=== PATIENT | male | born 1960 | race Caucasian/White ===

== ENCOUNTER 2016-04-07 21:57 | Emergency (ER) | payer OTHER ==
[~2016-04-07] VITALS: Ht 177.8 cm; Wt 100.0 kg
[2016-04-07 22:24] VITALS: Ht 177.8 cm; Wt 100.0 kg
[2016-04-07] MEDS ORDERED: SOD CHLORIDE 0.9% 1,000 ML IV STA (23:05)
[2016-04-07] MEDS ORDERED: LORAZEPAM 2 MG INJ IV ONE (23:30)
[2016-04-07 23:59] LABS: HEMATOCRIT 43.3 % (42.0-52.0); MEAN CORPUSCULAR HEMOGLOBIN 32.8 pg (29.0-33.0); MEAN CORPUSCULAR HGB CONC 34.5 g/dl (32.0-37.0); MEAN CORPUSCULAR VOLUME 94.8 fl (82.0-101.0); MEAN PLATELET VOLUME 10.2 fl (7.4-10.4); PLATELET COUNT 68 10^3/UL (140-440); RED BLOOD COUNT 4.57 10^6/ul (4.70-6.10); RED CELL DISTRIBUTION WIDTH 15.4 % (11.5-14.5); UNCORRECTED WBC 10.5 10^3/ul (4.8-10.8); WHITE BLOOD COUNT 10.5 10^3/ul (4.8-10.8)
[2016-04-08] MEDS ORDERED: MULTIVITAMINS 10 ML, THIAMINE 100 MG, FOLIC ACID 1 MG, MAGNESIUM SULFATE 2 GM in SOD CH... IV ONE ×5
[2016-04-08 00:04] LABS: ALBUMIN 3.8 g/dl (3.3-4.9)
[2016-04-08 00:05] LABS: POTASSIUM 3.4 mmol/L (3.5-5.1)
[2016-04-08 00:06] LABS: CONDITION 1; LH ANALYZER COMMENTS 1
[2016-04-08 00:07] LABS: ALBUMIN/GLOBULIN RATIO 1.02; BILIRUBIN,DIRECT 0.3 mg/dl (0.00-0.20); BILIRUBIN,INDIRECT 0.6 mg/dl (0-1.1); BILIRUBIN,TOTAL 0.9 mg/dl (0.2-1.3); CREATININE 0.82 mg/dl (0.61-1.24); TOTAL PROTEIN 7.5 g/dl (6.1-8.1)
[2016-04-08 00:08] LABS: CALCIUM 8.1 mg/dl (8.4-10.2)
[2016-04-08 00:56] LABS: ANISOCYTOSIS 1+; LYMPHOCYTES # 0.7 10^3/ul (0.8-2.9); MONOCYTE # 0.2 10^3/ul (0.3-0.9); NEUTROPHIL # 9.6 10^3/ul (1.6-7.5); PLATELET ESTIMATE PLT APPEAR DECREASED
[2016-04-08 01:16] LABS: BARBITURATES Negative (NEGATIVE); BENZODIAZEPINES Negative (NEGATIVE); CANNABINOIDS Positive (NEGATIVE); COCAINE Negative (NEGATIVE); OPIATES Negative (NEGATIVE)
[2016-04-08] MEDS ORDERED: LORAZEPAM 2 MG INJ IV ONE ×2 (03:00→05:00)
--- NOTE | 2016-04-08 03:26 | ERA ---
ER Documentation Chief Complaint Date/Time DATE: 04/08/16 TIME: 03:25 Chief Complaint pt is an alcoholic with his last drink at 1000 this morning. HPI This is a 55-year-old male who is an alcoholic. He said his last drink was at 10 AM, approximately 14 hours prior to arrival. Patient is coming in for tremulousness and feeling very weak and nauseous. Patient is a decades long history of chronic alcoholism with heavy drinking. ROS All systems reviewed and are negative except as per history of present illness. PMhx/Soc History of Surgery: No Anesthesia Reaction: No Hx Neurological Disorder: No Hx Respiratory Disorders: No Hx Cardiac Disorders: No Hx Psychiatric Problems: No (UNKNOWN) Hx Miscellaneous Medical Probl: No Hx Alcohol Use: No (UNKNOWN) Hx Substance Use: Yes (UNKNOWN WHAT HE USES) Hx Tobacco Use: No (UNKNOWN) Smoking Status: Current every day smoker Physical Exam Vitals Vital Signs Date Time Temp Pulse Resp B/P Pulse Ox O2 Delivery O2 Flow Rate FiO2 04/08/16 03:02 98.9 120 22 165/78 98 Room Air 04/07/16 22:24 98.9 115 24 196/103 96 Physical Exam Const: [] Head: Atraumatic Eyes: Normal Conjunctiva ENT: Normal External Ears, Nose and Mouth. Neck: Full range of motion..~ No meningismus. Resp: Clear to auscultation bilaterally Cardio: Regular rate and rhythm, no murmurs Abd: Soft, non tender, non distended. Normal bowel sounds Skin: No petechiae or rashes Back: No midline or flank tenderness Ext: No cyanosis, or edema Neur: Awake and alert Psych: Normal Mood and Affect Result Diagram: 04/07/16 2330 04/07/16 2330 Results 24 hrs Laboratory Tests Test 04/07/16 23:30 04/08/16 00:05 Alanine Aminotransferase (ALT/SGPT) 217IU/L Albumin 3.8g/dl Albumin/Globulin Ratio 1.02 Alkaline Phosphatase 385IU/L Anion Gap 16 Anisocytosis 1+ Aspartate Amino Transf (AST/SGOT) 470IU/L Blood Morphology Comment Blood Urea Nitrogen 5mg/dl Calcium Level 8.1mg/dl Carbon Dioxide Level 32mmol/L Chloride Level 75mmol/L Creatinine 0.82mg/dl Direct Bilirubin 0.30mg/dl Globulin 3.70g/dl Glucose Level 138mg/dl Hematocrit 43.3% Hemoglobin 15.0g/dl Indirect Bilirubin 0.6mg/dl Lipase 103U/L Lymphocytes # 0.710^3/ul Lymphocytes % 7.0% Mean Corpuscular Hemoglobin 32.8pg Mean Corpuscular Hemoglobin Concent 34.5g/dl Mean Corpuscular Volume 94.8fl Mean Platelet Volume 10.2fl Monocytes # 0.210^3/ul Monocytes % 2.0% Neutrophils # 9.610^3/ul Neutrophils % 91.0% Platelet Count 6810^3/UL Platelet Estimate PLT APPEAR DECREASED Potassium Level 3.4mmol/L Red Blood Count 4.5710^6/ul Red Cell Distribution Width 15.4% Sodium Level 120mmol/L Total Bilirubin 0.9mg/dl Total Protein 7.5g/dl White Blood Count 10.510^3/ul Urine Amphetamines Screen Negative Urine Barbiturates Negative Urine Benzodiazepines Screen Negative Urine Cannabinoids Positive Urine Cocaine Screen Negative Urine Opiates Screen Negative Current Medications Medications (Trade) Dose Ordered Sig/Lisa Route PRN Reason Start Time Stop Time Status Last Admin Dose Admin Sodium Chloride (NS) 1,000 ml @ 1,000 mls/hr Q1H STAT IV 04/07/16 23:05 04/08/16 00:04 DC 04/07/16 23:25 Lorazepam 2 mg 2 mg ONCE ONCE IV 04/07/16 23:30 04/07/16 23:31 DC 04/07/16 23:25 Multivitamins/ Thiamine HCl/ Folic Acid/ Magnesium Sulfate/ Sodium Chloride (Mvi-12 Adult/ Vitamin B1/Folic Acid/Magnesium Sulfate/NS) 1,015.2 ml @ 500 mls/ hr Q2H2M ONCE IV 04/08/16 00:00 04/08/16 02:01 DC 04/07/16 23:55 Lorazepam (Ativan) 2 mg ONCE ONCE IV 04/08/16 03:00 04/08/16 03:01 DC 04/08/16 03:01 Procedures/[facility] Medical decision making: This is a 55-year-old gentleman with acute alcohol withdrawal syndrome along with possible early delirium tremens. Patient has responded somewhat well to Ativan. Found to be hyponatremic. Patient will be transferred to [facility] Critical Care: Time: 55 minutes Treatments/Evaluations: Close monitoring and treatment of unstable vital signs, cardiorespiratory, and neurologic status, while maintaining tight balance of fluid, respiratory, and cardiac interventions. Departure Diagnosis: Primary Impression: Alcohol withdrawal syndrome Qualified Code: F10.231 - Alcohol withdrawal syndrome, with delirium Condition: Serious BAILEE BAIRD Apr 08, 2016 03:26
[2016-04-08 03:49] LABS: ALBUMIN 3.5 g/dl (3.3-4.9); POTASSIUM 3.6 mmol/L (3.5-5.1)
[2016-04-08 03:51] LABS: BILIRUBIN,DIRECT 0.3 mg/dl (0.00-0.20); BILIRUBIN,INDIRECT 0.8 mg/dl (0-1.1); BILIRUBIN,TOTAL 1.1 mg/dl (0.2-1.3); CREATININE 0.89 mg/dl (0.61-1.24)
[2016-04-08 03:52] LABS: ALBUMIN/GLOBULIN RATIO 1.02; CALCIUM 7.7 mg/dl (8.4-10.2); TOTAL PROTEIN 6.9 g/dl (6.1-8.1)
[2016-04-08 04:33] LABS: INR 0.96; PROTIME 12.8 Sec (12.2-14.2)
[2016-04-08 04:34] LABS: PARTIAL THROMBOPLASTIN TIME 26.1 Sec (25.0-35.0)
[2016-04-08 05:03] VITALS: BP 133/79; PULSE 118; RESP 20; TEMP 98.9
== END 2016-04-08 05:03 | disposition short-term general hospital (02) ==
LOC: E/R 21:57
DX: F10.231 Alcohol dependence with withdrawal delirium (principal); F17.210 Nicotine dependence, cigarettes, uncomplicated
CPT/HCPCS: 36415; 80053; 80307; 83690; 85025; 85610; 85730; 96374; 96375; 96376; 99291; J2060; J3411; J3475; J7030